=== PATIENT | female | born 1940 | race Two or more races ===

== ENCOUNTER → 2017-05-14 | Outpatient (CLI) | payer MEDICARE, OTHER | LOC: M WHC 08:43 | DX: Z12.31 Encounter for screening mammogram for malignant neoplasm of breast (principal) | CPT/HCPCS: 77067 ==

== ENCOUNTER → 2017-07-01 | Outpatient (CLI) | payer MEDICARE, OTHER | LOC: M ADAMS 10:11 | DX: M70.62 Trochanteric bursitis, left hip (principal); M81.0 Age-related osteoporosis without current pathological fracture; M16.12 Unilateral primary osteoarthritis, left hip | CPT/HCPCS: 73502 ==

== ENCOUNTER → 2017-07-30 | Outpatient (CLI) | payer MEDICARE, OTHER | LOC: M RAD 07:30 | DX: G20 Parkinson's disease (principal) | CPT/HCPCS: 70450 ==

== ENCOUNTER → 2017-11-04 | Outpatient (REF) | payer MEDICARE, OTHER | LOC: M LAB REF 15:31 | DX: L08.9 Local infection of the skin and subcutaneous tissue, unspecified (principal) | CPT/HCPCS: 87186 ==

== ENCOUNTER → 2018-02-19 | Outpatient (CLI) | payer MEDICARE, OTHER ==
[2018-02-19 12:35] LABS: ANION GAP 8 MEQ/L (8-16); BLOOD UREA NITROGEN 19 MG/DL (7-18); CALCIUM LEVEL 8.8 MG/DL (8.8-10.2); CARBON DIOXIDE LEVEL 28 MEQ/L (21-32); CHLORIDE LEVEL 104 MEQ/L (98-107); CREATININE FOR GFR 0.77 MG/DL (0.55-1.30); GLOMERULAR FILTRATION RATE > 60.0 (>39); GLUCOSE, FASTING 89 MG/DL (70-100); POTASSIUM SERUM 3.7 MEQ/L (3.5-5.1); SODIUM LEVEL 140 MEQ/L (136-145)
== END ==
LOC: M LAB 11:18
DX: Z01.812 Encounter for preprocedural laboratory examination (principal); L72.9 Follicular cyst of the skin and subcutaneous tissue, unspecified
CPT/HCPCS: 80048

== ENCOUNTER → 2018-05-26 | Outpatient (REF) | payer MEDICARE, OTHER ==
[2018-05-27 15:26] LABS: ANTI DOUBLE STRAND-DNA AB 10 IU/mL (0-9); ANTINUCLEAR ANTIBODIES DIRECT Positive (Negative); RNP ANTIBODIES 0.6 AI (0.0-0.9); SJOGREN'S ANTI SS-A <0.2 AI (0.0-0.9); SJOGREN'S ANTI SS-B <0.2 AI (0.0-0.9); SMITH ANTIBODIES <0.2 AI (0.0-0.9)
== END ==
LOC: M LABNEURO 09:03
PROVIDERS: ATTEND Physician Assistant Medical
DX: M25.552 Pain in left hip (principal); L40.9 Psoriasis, unspecified

== ENCOUNTER → 2018-07-01 | Outpatient (CLI) | payer MEDICARE, OTHER ==
--- NOTE | 2018-07-01 10:35 | REPMRS ---
Patient History The patient states she had a clinical breast exam in 06/24 Patient is postmenopausal. No known family history of cancer. Took hormonal contraceptives for 10 years. Digital Woman Screen Mammo: July 01, 2018 - Exam #: [id number] Bilateral CC and MLO view(s) were taken. Technologist: Esha Mckee, Technologist Prior study comparison: May 14, 2017, digital woman screen mammo performed at [facility]. April 12, 2016, digital woman screen mammo performed at [facility]. FINDINGS: There are scattered fibroglandular densities. There is a pacemaker power plant projecting over the left axilla on the MLO view. There has been no change in the appearance of the mammogram from the prior studies. There is a mild amount of scattered fibroglandular density which is fairly symmetric. There is no interval development of dominant mass, architectural distortion, or clustered microcalcification suggestive of malignancy. 3-D tomosynthesis shows no additional findings. Assessment: BI-RADS/ACR category 2 mammogram. Benign Findings. Recommendation Routine screening mammogram of both breasts in 1 year (for women over age 40). This patient's Lifetime Breast Cancer RIsk is estimated at 2.5 %. This mammogram was interpreted with the aid of an FDA-approved computer-aided dectection system. Electronically Signed By: Karthikeyan Damico MD 07/01/18 [id number]
== END ==
LOC: M WHC 08:04
PROVIDERS: ATTEND Nurse Practitioner Women's Health
DX: Z01.419 Encounter for gynecological examination (general) (routine) without abnormal findings (principal); Z12.31 Encounter for screening mammogram for malignant neoplasm of breast; Z78.0 Asymptomatic menopausal state; Z92.0 Personal history of contraception; Z95.0 Presence of cardiac pacemaker
CPT/HCPCS: 77063; 77067; G0101

== ENCOUNTER 2019-05-27 17:34 | Emergency (ER) | payer MEDICARE, OTHER ==
[~2019-05-27] VITALS: Ht 149.9 cm; Wt 71.0 kg
[2019-05-27] MEDS ORDERED: MAGN400C2 PO (18:04)
[2019-05-27] MEDS ORDERED: ASPI81TA85 PO (18:04)
[2019-05-27] MEDS ORDERED: HYDR50TAB PO (18:04)
[2019-05-27] MEDS ORDERED: VITA200028 PO (18:04)
[2019-05-27] MEDS ORDERED: SIMV40TA20 PO (18:04)
[2019-05-27] MEDS ORDERED: AMIL5TAB4 PO (18:04)
[2019-05-27] MEDS ORDERED: PRAM0.754 PO ×2 (18:04)
[2019-05-27 19:00] LABS: CK-MB VALUE MASS 3.7 NG/ML (<3.6); CPK CREATINE PHOSPHOKINASE 162 U/L (26-192); MB/CK RELATIVE INDEX 2.28 (< OR =4); TROPONIN I < 0.02 NG/ML (< 0.10)
[2019-05-27 19:36] LABS: BASO % 0.7 % (0.0-1.0); EOS # 0.3 10^3/uL (0.0-0.5); EOS % 6.2 % (0.0-3.0); HEMATOCRIT 41.1 % (36.0-47.0); HEMOGLOBIN 12.8 g/dl (12.0-15.5); MEAN CORPUSCULAR HEMOGLOBIN 29.7 pg (27.0-33.0); MEAN CORPUSCULAR HGB CONC 31.1 g/dl (32.0-36.5); MEAN CORPUSCULAR VOLUME 95.4 fl (80.0-96.0); MONO # 0.5 10^3/uL (0.0-0.8); MONO % 11.4 % (0.0-5.0); NEUTROPHILS # 2.5 10^3/uL (1.5-8.5); NEUTROPHILS % 58.2 % (36.0-66.0); PLATELET COUNT, AUTOMATED 214 10^3/uL (150-450); RED BLOOD COUNT 4.31 10^6/uL (4.00-5.40); WHITE BLOOD COUNT 4.2 10^3/uL (4.0-10.0)
[2019-05-27] MEDS ORDERED: ISOVUE-370 76% 100ML VIAL (Q9967) As Ordered ONE (19:46)
--- NOTE | 2019-05-27 20:13 | ECGEPIP ---
[facility] - ED Test Date: 2019-05-27 Pat Name: FLOR MOLINA Department: Room: - Gender: Female Hand Sole [employer]er: : 1940 Requested By: Katt Bedolla Order Number: [id number] Reading MD: Wagner Guerra Measurements Intervals [place] Rate: 70 P: 55 ME: 206 QRS: -75 QRSD: 152 T: 87 QT: 439 QTc: 475 Interpretive Statements ELECTRONIC VENTRICULAR PACEMAKER SIMILAR TO 12/27/15 Electronically Signed on 05-27-2019 20:12:36 EST by Wagner Guerra
--- NOTE | 2019-05-27 20:18 | REPVR ---
PROCEDURE INFORMATION: Exam: CT Angiography Chest With Contrast Exam date and time: 05/27/2019 7:49 PM Age: 78 years old Clinical indication: Chest pain; Additional info: Chest pain, SOB TECHNIQUE: Imaging protocol: Computed tomographic angiography of the chest with intravenous contrast. 3D rendering: MIP and/or 3D reconstructed images were created by the technologist. Radiation optimization: All CT scans at this facility use at least one of these dose optimization techniques: automated exposure control; mA and/or kV adjustment per patient size (includes targeted exams where dose is matched to clinical indication); or iterative reconstruction. Contrast material: ISOVUE 370; Contrast volume: 75 ml; Contrast route: IV; COMPARISON: CR Chest, 1 view 12/27/2015 2:54 PM FINDINGS: Pulmonary arteries: There are no pulmonary emboli. Aorta: The aorta demonstrates mild atherosclerotic calcification. Ectatic thoracic aorta.There is mild atherosclerotic calcification of the coronary arteries. There is no aortic dissection or aneurysm. Lungs: Bibasilar atelectasis. Mild bilateral ground-glass opacities likely are atelectatic. Pleural space: Unremarkable. No pneumothorax. No pleural effusion. Heart: Unremarkable. No cardiomegaly. No pericardial effusion. Lymph nodes: Small mediastinal lymph nodes. Bones/joints: Degenerative spondylosis. No acute fracture. Soft tissues: Left-sided Bochdalek's hernia. IMPRESSION: 1. There are no pulmonary emboli. 2. There is no aortic dissection or aneurysm. 3. No acute pulmonary parenchymal abnormalities. Electronically signed by: Dandy Hills On 05/27/2019 20:18:30 PM
--- NOTE | 2019-05-27 20:20 | REPVR ---
PROCEDURE INFORMATION: Exam: US Duplex Lower Extremity Veins Exam date and time: 05/27/2019 8:11 PM Age: 78 years old Clinical indication: Abnormal findings; Abnormal lab test; Elevated d-dimer; Additional info: Elev d dimer chest pain, R/O dvt TECHNIQUE: Imaging protocol: Real-time duplex ultrasound of the Lower Extremities with 2-D purvis scale, color Doppler flow and spectral waveform analysis with image documentation. Complete exam focused on the bilateral lower extremity veins. COMPARISON: No relevant prior studies available. FINDINGS: Right deep veins: Unremarkable. The common femoral, femoral, proximal profunda femoral and popliteal veins are patent without thrombus. Normal Doppler waveforms. Normal compressibility and/or augmentation response. Right superficial veins: Saphenofemoral junction is patent without thrombus. Left deep veins: Unremarkable. The common femoral, femoral, proximal profunda femoral and popliteal veins are patent without thrombus. Normal Doppler waveforms. Normal compressibility and/or augmentation response. Left superficial veins: Saphenofemoral junction is patent without thrombus. Soft tissues: Unremarkable. IMPRESSION: No acute findings. No evidence of deep vein thrombosis. Electronically signed by: Dandy Hills On 05/27/2019 20:19:51 PM
[2019-05-27] MEDS ORDERED: VENTAER INH (20:50)
[2019-05-27] MEDS ORDERED: TREL1AER INH (20:50)
[2019-05-27] MEDS ORDERED: FLUT05CR TOP (20:50)
[2019-05-27] MEDS ORDERED: KETO2SHA9 TOP (20:50)
[2019-05-27] MEDS ORDERED: HALO0.052 TOP (20:50)
[2019-05-27 21:31] VITALS: BP 139/62
== END 2019-05-27 21:59 | disposition home or self-care (01) ==
LOC: M ED 17:34
DX: R79.1 Abnormal coagulation profile (principal); J45.909 Unspecified asthma, uncomplicated; I10 Essential (primary) hypertension; E55.9 Vitamin D deficiency, unspecified; G20 Parkinson's disease; E78.9 Disorder of lipoprotein metabolism, unspecified; M19.90 Unspecified osteoarthritis, unspecified site; Z95.0 Presence of cardiac pacemaker; Z88.2 Allergy status to sulfonamides; Z88.8 Allergy status to other drugs, medicaments and biological substances; Z79.899 Other long term (current) drug therapy; Z79.82 Long term (current) use of aspirin
CPT/HCPCS: 36415; 71275; 80047; 82550; 82553; 84484; 85025; 93005; 93041; 93970; 94760; 99285; Q9967

== ENCOUNTER → 2019-06-17 | Outpatient (CLI) | payer MEDICARE, OTHER ==
[~2019-06-17] MED LIST: AMIL5TAB4 PO; ASPI81TA85 PO; FLUT05CR TOP; HALO0.052 TOP; HYDR50TAB PO; ISOVUE-370 76% 100ML VIAL (Q9967) As Ordered ONE; KETO2SHA9 TOP; MAGN400C2 PO; PRAM0.754 PO; SIMV40TA20 PO; TREL1AER INH; VENTAER INH; VITA200028 PO
--- NOTE | 2019-06-17 16:42 | REPVR ---
PROCEDURE INFORMATION: Exam: CT Angiography Neck With Contrast Exam date and time: 06/17/2019 3:58 PM Age: 78 years old Clinical indication: Condition or disease; Occlusion or stenosis of cerebral arteries; Additional info: Occlusion and stenosis of left carotid artery TECHNIQUE: Imaging protocol: Computed tomography angiography of the neck with intravenous contrast. 3D rendering: MIP and/or 3D reconstructed images were created by the technologist. Radiation optimization: All CT scans at this facility use at least one of these dose optimization techniques: automated exposure control; mA and/or kV adjustment per patient size (includes targeted exams where dose is matched to clinical indication); or iterative reconstruction. Contrast material: ISOVUE 370; Contrast volume: 75 ml; Contrast route: IV; COMPARISON: No relevant prior studies available. FINDINGS: VASCULATURE: Right common carotid artery: Unremarkable. No stenosis. No dissection or occlusion. Right internal carotid artery: There is minimal calcified atheromatous plaque in the right carotid bulb without significant stenosis of the proximal right ICA. Right external carotid artery: Unremarkable. No occlusion or stenosis of the origin. Right vertebral artery: Unremarkable. No stenosis. No dissection or occlusion. Left common carotid artery: Unremarkable. No stenosis. No dissection or occlusion. Left internal carotid artery: There is calcified atheromatous plaque in the left carotid bulb extending into the proximal left ICA without significant stenosis. There may be an ulcerated plaque in the left ICA at the level of the angle of the mandible series 403, image 52, series 401, image 8. Left external carotid artery: Calcified atheromatous plaque extends into the proximal left ECA without significant stenosis. Left vertebral artery: Unremarkable. No stenosis. No dissection or occlusion. NECK: Bones/joints: No acute fracture. Soft tissues: Normal. No significant soft tissue swelling. IMPRESSION: There is no significant stenosis of the carotid arteries. There may be an ulcerated plaque in the proximal left ICA just above the carotid bulb. COMMENT: Using NASCET method for measuring degree of carotid artery stenosis: Mild is less than 50% stenosis. Moderate is 50-69% stenosis. Severe is 70-94% stenosis. Near occlusion is 95-99% stenosis. Electronically signed by: Suni Campoverde On 06/17/2019 16:42:40 PM
== END ==
LOC: M RAD 15:28
PROVIDERS: ATTEND Surgery Vascular Surgery
DX: I65.22 Occlusion and stenosis of left carotid artery (principal)
CPT/HCPCS: 70498; Q9967

== ENCOUNTER → 2019-07-17 | Outpatient (CLI) | payer MEDICARE, OTHER ==
[~2019-07-17] MED LIST changes: -ISOVUE-370 76% 100ML VIAL (Q9967) As Ordered ONE
--- NOTE | 2019-07-17 14:11 | REP ---
Left knee series: Six views. History: Pain in the knee. Findings: Six views of the left knee demonstrate mild patellofemoral spurring and joint space narrowing. There is diffuse osteopenia. Clothing artifact is seen over the distal thigh. No evidence of joint effusion. Impression: Diffuse osteopenia. 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 No acute abnormality. Electronically Signed by Jake Damico MD 07/17/2019 02:02 P
== END ==
LOC: M ADAMS 13:28
PROVIDERS: ATTEND Physician Assistant
DX: M85.862 Other specified disorders of bone density and structure, left lower leg (principal); M17.12 Unilateral primary osteoarthritis, left knee

== ENCOUNTER → 2019-09-24 | Outpatient (CLI) | payer MEDICARE, OTHER ==
--- NOTE | 2019-09-24 11:11 | REPMRS ---
Patient History The patient states she had a clinical breast exam in September 2019. No known family history of cancer. Took hormonal contraceptives for 10 years. Digital Woman Screen Mammo: September 24, 2019 - Exam #: [id number] Bilateral CC and MLO view(s) were taken. Technologist: Mary Anne Mane, Technologist Prior study comparison: July 01, 2018, bilateral digital woman screen mammo performed at [facility]. May 14, 2017, digital woman screen mammo performed at [facility]. April 12, 2016, digital woman screen mammo performed at [facility]. FINDINGS: There are scattered fibroglandular densities. The Volpara volumetric breast density category is:B. There is a pacemaker power plant projecting over the left axilla on the MLO view. There has been no change in the appearance of the mammogram from the prior studies. There is a mild amount of scattered fibroglandular density which is fairly symmetric. There is no interval development of dominant mass, architectural distortion, or grouped microcalcification suggestive of malignancy. 3-D tomosynthesis shows no additional findings. Assessment: BI-RADS/ACR category 2 mammogram. Benign Findings. Recommendation Routine screening mammogram of both breasts in 1 year (for women over age 40). This patient's Lifetime Breast Cancer Risk is estimated at 1.9 %. This mammogram was interpreted with the aid of an FDA-approved computer-aided dectection system. Electronically Signed By: Karthikeyan Damico MD 09/24/19 1111
== END ==
LOC: M WHC 09:47
PROVIDERS: ATTEND Nurse Practitioner Women's Health
DX: Z12.31 Encounter for screening mammogram for malignant neoplasm of breast (principal); Z92.0 Personal history of contraception; Z95.0 Presence of cardiac pacemaker
CPT/HCPCS: 77063; 77067; G0463

== ENCOUNTER → 2020-05-08 | Outpatient (CLI) | payer MEDICARE, OTHER ==
[~2020-05-08] MED LIST changes: -ASPI81TA85 PO; +ASPI81TA86 PO; +KETO2SHA8 TOP; -KETO2SHA9 TOP
== END ==
LOC: M LABSMTC 11:14
PROVIDERS: ATTEND Pediatrics
DX: Z20.828 Contact with and (suspected) exposure to other viral communicable diseases (principal)

== ENCOUNTER → 2020-07-28 | Outpatient (CLI) | payer MEDICARE, OTHER | LOC: M LABSMTC 09:49 | DX: Z20.822 Contact with and (suspected) exposure to COVID-19 (principal) ==

== ENCOUNTER → 2021-01-19 | Outpatient (CLI) | payer MEDICARE, OTHER ==
--- NOTE | 2021-01-19 09:24 | REPMRS ---
Patient History The patient states she has not had a clinical breast exam in over a year. Patient is postmenopausal. No known family history of cancer. Took hormonal contraceptives for 10 years. Patient states no breast complaints today. Patient has signed MRS History Sheet. Digital Woman Screen Mammo: January 19, 2021 - Exam #: [id number] Bilateral CC and MLO view(s) were taken. Technologist: Maureen Thorpe Materials Scheduler Prior study comparison: September 24, 2019, bilateral digital woman screen mammo performed at [facility]. July 01, 2018, bilateral digital woman screen mammo performed at [facility]. FINDINGS: There are scattered fibroglandular densities. Screening. Digital screening (2D) mammography was performed bilaterally in the CC and MLO projections. Additionally, breast tomosynthesis (3D mammography) was performed bilaterally in the CC and MLO projections. Todays exam was compared to the prior exam/exams. By history, the patient has no complaints of a palpable breast abnormality or other significant breast complaints. The breasts are unchanged in size and shape. There are no armando-soft tissue densities or spiculated masses. There is no internal architectural distortion.Once again, stable benign appearing calcifications are seen. There are no suspicious armando-calcific clusters. Skin thickening or nipple retraction is not present. IMPRESSION: BI-RADS Category 2- Benign Findings. There is no evidence of malignant alteration of the breasts. Followup examination recommended in one year. The Volpara volumetric breast density category is B, there are scattered areas of fibroglandular densities. This mammogram was read with the assistance of [employer],an FDA approved computer aided detection system for mammography. The lifetime Tyrer-Cuzick score is 1.6 % Negative x-ray reports should not delay surgical consultation if a dominant or clinically suspicious mass is present. Not all breast cancers can be identified by mammography. Therefore, we recommend that you continue to perform regular breast self-examination and physical examination and then promptly contact your physician of any concerns or changes. Adenosis and dense breasts may obscure an underlying neoplasm. Assessment: BI-RADS/ACR category 2 mammogram. Benign Findings. Recommendation Routine screening mammogram of both breasts in 1 year. Electronically Signed By: Obdulio Malave DO 01/19/21 0938
--- NOTE | 2021-01-19 11:01 | DEXAMM ---
INDICATION: OSTEOPENIA/M85.89. COMPARISON: 03/23/2015 and other prior studies. TECHNIQUE: Bone density was measured using dual-energy x-ray absorptiometry (DEXA). FINDINGS: AP SPINE L1-L4 BMD 1.362 g/cm2 Young Adult T-Score 1.4 Age Matched Z-Score 3.2. LT FEMUR, TOTAL BMD 0.792 g/cm2 Young Adult T-Score -1.7 Age Matched Z-Score 0.3. LT NECK BMD 0.712 g/cm2 Young Adult T-Score -2.3 Age Matched Z-Score -0.2. RT FEMUR, TOTAL BMD 0.835 g/cm2 Young Adult T-Score -1.4 Age Matched Z-Score 0.6. RT NECK BMD 0.710 g/cm2 Young Adult T-Score -2.4 Age Matched Z-Score -0.2. IMPRESSION: There is normal bone density of the spine. There is low bone density of the left hip. There is low bone density of the right hip. The density of the spine has increased 11.1% since the initial exam on 05/14/2001. The density of the spine decreased 3.5% since most recent exam on 03/23/2015. The density of the left hip has decreased 9.0% since initial exam on 03/23/2015. The density of the right hip has decreased 9.0% since the initial exam on 03/23/2015. FOLLOW-UP: Recommendation for the next bone density exam: 2 years. <Electronically signed by Denton Jacobs > 01/19/21 0168
== END ==
LOC: M WHC 08:07
PROVIDERS: ATTEND Family Medicine
DX: Z12.31 Encounter for screening mammogram for malignant neoplasm of breast (principal); M85.89 Other specified disorders of bone density and structure, multiple sites; Z78.0 Asymptomatic menopausal state

== ENCOUNTER → 2021-04-18 | Outpatient (CLI) | payer MEDICARE, OTHER | LOC: M PLAIMG 07:54 | PROVIDERS: ATTEND Physician Assistant Medical | DX: M54.59 Other low back pain (principal); M51.36 Other intervertebral disc degeneration, lumbar region; R53.1 Weakness; M41.86 Other forms of scoliosis, lumbar region; M48.07 Spinal stenosis, lumbosacral region; M48.061 Spinal stenosis, lumbar region without neurogenic claudication; M25.78 Osteophyte, vertebrae; M47.816 Spondylosis without myelopathy or radiculopathy, lumbar region ==

== ENCOUNTER → 2021-09-27 | Outpatient (REF) | payer MEDICARE, OTHER | LOC: M LAB REF 13:01 | PROVIDERS: ATTEND Nurse Practitioner Adult Health | DX: R05.9 Cough, unspecified (principal) ==

== ENCOUNTER → 2021-10-23 | Outpatient (CLI) | payer MEDICARE, OTHER ==
[2021-10-23 11:58] LABS: BASO % 0.9 % (0.0-1.0); EOS # 0.1 10^3/uL (0.0-0.5); HEMOGLOBIN 11.7 g/dl (12.0-15.5); LYMPH # 0.8 10^3/uL (1.5-5.0); LYMPH % 23.2 % (24.0-44.0); MEAN CORPUSCULAR HEMOGLOBIN 29.2 pg (27.0-33.0); MEAN CORPUSCULAR HGB CONC 30.8 g/dl (32.0-36.5); MEAN CORPUSCULAR VOLUME 94.8 fl (80.0-96.0); MONO # 0.4 10^3/uL (0.0-0.8); NEUTROPHILS % 59.7 % (36.0-66.0); PLATELET COUNT, AUTOMATED 132 10^3/uL (150-450); RED BLOOD COUNT 4.01 10^6/uL (4.00-5.40); WHITE BLOOD COUNT 3.3 10^3/uL (4.0-10.0)
== END ==
LOC: M RAD 10:54
PROVIDERS: ATTEND Family Medicine
DX: R93.7 Abnormal findings on diagnostic imaging of other parts of musculoskeletal system (principal); R79.89 Other specified abnormal findings of blood chemistry; M54.50 Low back pain, unspecified

== ENCOUNTER → 2021-11-16 | Outpatient (CLI) | payer MEDICARE, OTHER ==
[2021-11-16 20:11] LABS: BLOOD UREA NITROGEN 21 MG/DL (7-18); CALCIUM LEVEL 8.8 MG/DL (8.8-10.2); CARBON DIOXIDE LEVEL 27 MEQ/L (21-32); CHLORIDE LEVEL 110 MEQ/L (98-107); CREATININE FOR GFR 0.75 MG/DL (0.55-1.30); GLOMERULAR FILTRATION RATE > 60.0 (>32); GLUCOSE, FASTING 100 MG/DL (70-100); POTASSIUM SERUM 4.4 MEQ/L (3.5-5.1); SODIUM LEVEL 143 MEQ/L (136-145)
== END ==
LOC: M PLALAB 09:43
PROVIDERS: ATTEND Nurse Practitioner Women's Health
DX: Q61.00 Congenital renal cyst, unspecified (principal)

== ENCOUNTER → 2021-11-27 | Outpatient (CLI) | payer MEDICARE, OTHER ==
[~2021-11-27] MED LIST changes: +ISOVUE-370 76% 100ML VIAL As Ordered ONE
== END ==
LOC: M RAD 10:17
PROVIDERS: ATTEND Nurse Practitioner Women's Health
DX: Q61.00 Congenital renal cyst, unspecified (principal); K44.9 Diaphragmatic hernia without obstruction or gangrene
CPT/HCPCS: 74170; Q9967

== ENCOUNTER → 2021-12-28 | Outpatient (CLI) | payer MEDICARE, OTHER ==
[~2021-12-28] MED LIST changes: -ISOVUE-370 76% 100ML VIAL As Ordered ONE
== END ==
LOC: M RAD 09:55
PROVIDERS: ATTEND Orthopaedic Surgery
DX: R93.7 Abnormal findings on diagnostic imaging of other parts of musculoskeletal system (principal)
CPT/HCPCS: 78315; A9503

== ENCOUNTER → 2022-01-23 | Outpatient (REF) | payer MEDICARE, OTHER | LOC: M LAB REF 13:18 | PROVIDERS: ATTEND Nurse Practitioner Adult Health | DX: R05.9 Cough, unspecified (principal) ==

== ENCOUNTER → 2022-02-24 | Outpatient (CLI) | payer MEDICARE, OTHER ==
[2022-02-24 08:59] LABS: BASO % 0.7 % (0.0-1.0); EOS # 0.1 10^3/uL (0.0-0.5); EOS % 1.9 % (0.0-3.0); HEMATOCRIT 35.7 % (36.0-47.0); HEMOGLOBIN 11.1 g/dl (12.0-15.5); MEAN CORPUSCULAR HGB CONC 31.1 g/dl (32.0-36.5); MEAN CORPUSCULAR VOLUME 96.5 fl (80.0-96.0); MONO # 0.5 10^3/uL (0.0-0.8); MONO % 11.1 % (2.0-8.0); NEUTROPHILS # 2.6 10^3/uL (1.5-8.5); NEUTROPHILS % 61.9 % (36.0-66.0); PLATELET COUNT, AUTOMATED 213 10^3/uL (150-450); WHITE BLOOD COUNT 4.2 10^3/uL (4.0-10.0)
[2022-02-24 09:01] LABS: APPEARANCE, URINE MANUAL CLEAR (CLEAR); COLOR, URINE MANUAL YELLOW (YELLOW)
[2022-02-24 09:02] LABS: PH,URINE MAN 7.5 UNITS (5.0 - 7.0)
[2022-02-24 09:03] LABS: BILIRUBIN, URINE MANUAL NEGATIVE (NEGATIVE); BLOOD URINE MANUAL NEGATIVE (NEGATIVE); GLUCOSE, URINE (UA) MANUAL NEGATIVE (NEGATIVE); KETONE, URINE MANUAL NEGATIVE (NEGATIVE); LEUKOCYTE ESTERASE, URINE MAN NEGATIVE (NEGATIVE); NITRITE, URINE MANUAL NEGATIVE (NEGATIVE); PROTEIN, URINE MANUAL TRACE mg/dL (NEGATIVE); UROBILINOGEN, URINE MANUAL NORMAL (NORMAL)
[2022-02-24 09:28] LABS: AMORPHOUS SEDIMENT, URINE MOD AMOUNT (NEGATIVE); BACTERIA, URINE NONE SEEN; HYALINE CAST, URINE NONE SEEN /lpf (0-1); RBC, URINE NONE SEEN /hpf (0-3); SQUAMOUS EPITHELIAL CELL URINE SMALL AMOUNT /hpf (SMALL AMT)
[2022-02-24 09:44] LABS: ALBUMIN 3.4 GM/DL (3.2-5.2); ALT/SGPT 37 U/L (12-78); BILIRUBIN,TOTAL 0.9 MG/DL (0.2-1.0); BLOOD UREA NITROGEN 22 MG/DL (7-18); CALCIUM LEVEL 8.4 MG/DL (8.8-10.2); CARBON DIOXIDE LEVEL 28 MEQ/L (21-32); CHLORIDE LEVEL 107 MEQ/L (98-107); CREATININE FOR GFR 0.88 MG/DL (0.55-1.30); FREE T4 1.08 NG/DL (0.76-1.46); GLOMERULAR FILTRATION RATE > 60.0 (>32); GLUCOSE, FASTING 116 MG/DL (70-100); POTASSIUM SERUM 4.4 MEQ/L (3.5-5.1); SODIUM LEVEL 139 MEQ/L (136-145); THYROID STIMULATING HORMONE 0.888 uIU/ML (0.358-3.740); TOTAL PROTEIN 6.5 GM/DL (6.4-8.2)
== END ==
LOC: M LAB 08:10
PROVIDERS: ATTEND Family Medicine
DX: E03.9 Hypothyroidism, unspecified (principal); I11.0 Hypertensive heart disease with heart failure; G20 Parkinson's disease; I50.9 Heart failure, unspecified; Z79.899 Other long term (current) drug therapy

== ENCOUNTER → 2022-04-06 | Outpatient (CLI) | payer MEDICARE, OTHER | LOC: M WHC 06:56 | PROVIDERS: ATTEND Family Medicine | DX: Z12.31 Encounter for screening mammogram for malignant neoplasm of breast (principal) ==

== ENCOUNTER → 2022-04-06 | Outpatient (CLI) | payer MEDICARE, OTHER ==
[2022-04-06 08:40] LABS: EOS # 0.1 10^3/uL (0.0-0.5); EOS % 4.7 % (0.0-3.0); HEMATOCRIT 37.6 % (36.0-47.0); HEMOGLOBIN 11.3 g/dl (12.0-15.5); LYMPH # 0.7 10^3/uL (1.5-5.0); LYMPH % 22.6 % (24.0-44.0); MEAN CORPUSCULAR HEMOGLOBIN 29.2 pg (27.0-33.0); MEAN CORPUSCULAR HGB CONC 30.1 g/dl (32.0-36.5); MEAN CORPUSCULAR VOLUME 97.2 fl (80.0-96.0); MONO # 0.4 10^3/uL (0.0-0.8); NEUTROPHILS # 1.8 10^3/uL (1.5-8.5); PLATELET COUNT, AUTOMATED 118 10^3/uL (150-450); RED BLOOD COUNT 3.87 10^6/uL (4.00-5.40)
[2022-04-06 09:24] LABS: ALBUMIN 3.7 G/DL (3.2-5.2); ALKALINE PHOSPHATASE 104 U/L (46-116); ALT/SGPT 17 U/L (7.0-40); AST/SGOT 21 U/L (<34); BILIRUBIN,TOTAL 1.2 MG/DL (0.3-1.2); BLOOD UREA NITROGEN 24 MG/DL (9-23); CALCIUM LEVEL 8.6 MG/DL (8.3-10.6); CARBON DIOXIDE LEVEL 30 MMOL/L (20-31); CHLORIDE LEVEL 106 MMOL/L (98-107); CREATININE FOR GFR 0.79 MG/DL (0.55-1.30); GLOMERULAR FILTRATION RATE > 60.0 (>32); GLUCOSE, FASTING 93 MG/DL (74-106); POTASSIUM SERUM 4.1 MMOL/L (3.5-5.1); SODIUM LEVEL 142 MMOL/L (136-145); TOTAL PROTEIN 6.1 G/DL (5.7-8.2)
== END ==
LOC: M LAB 08:05
PROVIDERS: ATTEND Family Medicine
DX: G20 Parkinson's disease (principal); R42 Dizziness and giddiness; E83.51 Hypocalcemia

== ENCOUNTER → 2022-07-12 | Outpatient (REF) | payer MEDICARE, OTHER ==
[~2022-07-12] MED LIST changes: +ATOR1TAB21; +CALC-218 PO; +FURO20TA2; +IPRA0.00; +LORA-674; +POTA1TAB23; +VALS1TAB66
== END ==
LOC: M LAB REF 13:03
PROVIDERS: ATTEND Nurse Practitioner Adult Health
DX: R05.9 Cough, unspecified (principal)

== ENCOUNTER 2022-07-13 18:42 | Emergency (ER) | payer MEDICARE, OTHER ==
[~2022-07-13] VITALS: Ht 149.9 cm; Wt 65.3 kg
[~2022-07-13 18:42] MED LIST changes: -ATOR1TAB21; -CALC-218 PO; -FURO20TA2; -IPRA0.00; -LORA-674; -POTA1TAB23; -VALS1TAB66
[2022-07-13] MEDS ORDERED: LORA-674 (18:55)
[2022-07-13] MEDS ORDERED: POTA1TAB23 (18:55)
[2022-07-13] MEDS ORDERED: VALS1TAB66 (18:55)
[2022-07-13] MEDS ORDERED: ATOR1TAB21 (18:55)
[2022-07-13] MEDS ORDERED: IPRA0.00 (18:55)
[2022-07-13] MEDS ORDERED: FURO20TA2 (18:55)
[2022-07-13] MEDS ORDERED: CALC-218 PO (18:55)
[2022-07-13] MEDS ORDERED: NS 1,000 ML IV ONE (19:55)
[2022-07-13 20:04] LABS: BASO % 0.6 % (0.0-1.0); EOS # 0.2 10^3/uL (0.0-0.5); EOS % 4.3 % (0.0-3.0); HEMATOCRIT 36.4 % (36.0-47.0); HEMOGLOBIN 11.5 g/dl (12.0-15.5); LYMPH % 27.4 % (24.0-44.0); MEAN CORPUSCULAR HGB CONC 31.6 g/dl (32.0-36.5); MEAN CORPUSCULAR VOLUME 91.7 fl (80.0-96.0); MONO # 0.5 10^3/uL (0.0-0.8); MONO % 13.8 % (2.0-8.0); NEUTROPHILS # 1.8 10^3/uL (1.5-8.5); NEUTROPHILS % 51.9 % (36.0-66.0); PLATELET COUNT, AUTOMATED 126 10^3/uL (150-450); RED BLOOD COUNT 3.97 10^6/uL (4.00-5.40); WHITE BLOOD COUNT 3.5 10^3/uL (4.0-10.0)
[2022-07-13 20:14] LABS: INR 1.04; PROTHROMBIN TIME 13.8 SECONDS (12.5-14.5)
[2022-07-13 20:15] LABS: PARTIAL THROMBOPLASTIN TIME 28.6 SECONDS (24.8-34.2)
[2022-07-13 20:34] LABS: LIPASE 42 U/L (12-53)
[2022-07-13 20:36] LABS: ALBUMIN 3.4 G/DL (3.2-5.2); ALKALINE PHOSPHATASE 93 U/L (46-116); ALT/SGPT 20 U/L (7.0-40); AST/SGOT 17 U/L (<34); BILIRUBIN,DIRECT 0.4 MG/DL (<0.4); BILIRUBIN,TOTAL 1.4 MG/DL (0.3-1.2); BLOOD UREA NITROGEN 28 MG/DL (9-23); CALCIUM LEVEL 8.3 MG/DL (8.3-10.6); CARBON DIOXIDE LEVEL 29 MMOL/L (20-31); CHLORIDE LEVEL 107 MMOL/L (98-107); CREATININE FOR GFR 0.76 MG/DL (0.55-1.30); GLOMERULAR FILTRATION RATE > 60.0 (>32); GLUCOSE, FASTING 82 MG/DL (74-106); POTASSIUM SERUM 3.8 MMOL/L (3.5-5.1); SODIUM LEVEL 142 MMOL/L (136-145); TOTAL PROTEIN 5.7 G/DL (5.7-8.2)
[2022-07-13] MEDS ORDERED: ISOVUE-370 76% 100ML VIAL As Ordered ONE (21:03)
[2022-07-13 22:30] VITALS: BP 140/58
== END 2022-07-13 23:02 | disposition home or self-care (01) ==
LOC: M ED 18:42
DX: R10.9 Unspecified abdominal pain (principal); I11.9 Hypertensive heart disease without heart failure; G20 Parkinson's disease; Z79.82 Long term (current) use of aspirin; Z79.899 Other long term (current) drug therapy; Z79.51 Long term (current) use of inhaled steroids
CPT/HCPCS: 36415; 74177; 80048; 80076; 81001; 83605; 83690; 85025; 85610; 85730; 93041; 99284; Q9967

== ENCOUNTER 2022-08-17 17:09 | Emergency (ER) | payer MEDICARE, OTHER ==
[~2022-08-17] VITALS: Ht 149.9 cm; Wt 63.6 kg
[~2022-08-17 17:09] MED LIST changes: +ATOR1TAB21; +CALC-218 PO; +FURO20TA2; +IPRA0.00; +LORA-674; +POTA1TAB23; +VALS1TAB66
[2022-08-17] MEDS ORDERED: ACETAMINOPHEN 325 MG TAB PO ONE (20:10)
[2022-08-17 22:43] VITALS: BP 144/65
== END 2022-08-17 22:47 | disposition home or self-care (01) ==
LOC: M ED 17:09
DX: S32.020A Wedge compression fracture of second lumbar vertebra, initial encounter for closed fracture (principal); S70.01XA Contusion of right hip, initial encounter; W01.0XXA Fall on same level from slipping, tripping and stumbling without subsequent striking against object, initial encounter; Y92.019 Unspecified place in single-family (private) house as the place of occurrence of the external cause; Y93.E3 Activity, vacuuming; Y99.8 Other external cause status; G20 Parkinson's disease; I10 Essential (primary) hypertension; Z95.0 Presence of cardiac pacemaker; E78.00 Pure hypercholesterolemia, unspecified

== ENCOUNTER → 2022-11-13 | Outpatient (REF) | payer MEDICARE, OTHER | LOC: M LAB REF 17:06 | PROVIDERS: ATTEND Internal Medicine Pulmonary Disease | DX: J45.40 Moderate persistent asthma, uncomplicated (principal); J47.9 Bronchiectasis, uncomplicated ==

== ENCOUNTER → 2022-11-22 | Outpatient (REF) | payer MEDICARE, OTHER | LOC: M LAB REF 13:24 | PROVIDERS: ATTEND Internal Medicine Pulmonary Disease | DX: R05.9 Cough, unspecified (principal); J47.9 Bronchiectasis, uncomplicated ==

== ENCOUNTER → 2022-12-13 | Outpatient (CLI) | payer MEDICARE, OTHER | LOC: M RAD 14:20 | PROVIDERS: ATTEND Surgery Vascular Surgery | DX: I65.22 Occlusion and stenosis of left carotid artery (principal) ==

== ENCOUNTER → 2022-12-18 | Outpatient (CLI) | payer MEDICARE, OTHER ==
[~2022-12-18] MED LIST changes: +ALBU2.5V10 INH; +ASPI81CH33 PO; -ATOR1TAB21; +ATOR1TAB21 PO; +BUDE0.5S6 INH; +BUME1TAB3 PO; +EZET10TA21 PO; -LORA-674; +LORA-674 PO; -POTA1TAB23; +POTA1TAB23 PO; +PRAM1TAB7 PO; +PRES10CA2 PO; +RANO500T2 PO; -VALS1TAB66; +VALS1TAB66 PO
== END ==
LOC: M WHC 08:04
PROVIDERS: ATTEND Nurse Practitioner Family
DX: R10.2 Pelvic and perineal pain (principal)

== ENCOUNTER → 2022-12-21 | Outpatient (REF) | payer MEDICARE, OTHER | LOC: M LAB REF 11:02 | PROVIDERS: ATTEND Internal Medicine Pulmonary Disease | DX: J47.9 Bronchiectasis, uncomplicated (principal) ==

== ENCOUNTER → 2023-01-09 | Outpatient (REF) | payer MEDICARE, OTHER ==
[~2023-01-09] MED LIST changes: +LORA-1041 PO; -LORA-674 PO
== END ==
LOC: M LAB REF 16:56
PROVIDERS: ATTEND Internal Medicine Pulmonary Disease
DX: J45.40 Moderate persistent asthma, uncomplicated (principal)

== ENCOUNTER 2023-02-05 20:13 | Emergency (ER) | payer MEDICARE, OTHER ==
[~2023-02-05] VITALS: Ht 149.9 cm; Wt 62.7 kg
[2023-02-05 20:13] VITALS: TEMP 98.1
[2023-02-05] MEDS: COMBIVENT RESPIMAT 100-20MCG INHALER 4GM INH SCH ×3 (23:22→23:27)
[2023-02-05 23:42] LABS: BASO % 0.9 % (0.0-1.0); EOS # 0.2 10^3/uL (0.0-0.5); EOS % 6.8 % (0.0-3.0); HEMATOCRIT 30.5 % (36.0-47.0); HEMOGLOBIN 9.8 g/dl (12.0-15.5); LYMPH # 0.3 10^3/uL (1.5-5.0); LYMPH % 11.4 % (24.0-44.0); MEAN CORPUSCULAR HEMOGLOBIN 30.2 pg (27.0-33.0); MEAN CORPUSCULAR HGB CONC 32.1 g/dl (32.0-36.5); MEAN CORPUSCULAR VOLUME 94.1 fl (80.0-96.0); MONO # 0.4 10^3/uL (0.0-0.8); MONO % 16.4 % (2.0-8.0); NEUTROPHILS # 1.4 10^3/uL (1.5-8.5); NEUTROPHILS % 63.6 % (36.0-66.0); PLATELET COUNT, AUTOMATED 107 10^3/uL (150-450); RED BLOOD COUNT 3.24 10^6/uL (4.00-5.40); WHITE BLOOD COUNT 2.2 10^3/uL (4.0-10.0)
[2023-02-06 00:07] LABS: ALBUMIN 3.9 G/DL (3.2-5.2); BILIRUBIN,DIRECT 0.3 MG/DL (<0.4); CALCIUM LEVEL 8.5 MG/DL (8.3-10.6); CK-MB VALUE MASS 3.1 NG/ML (<3.6); CREATININE FOR GFR 1.35 MG/DL (0.55-1.30); MB/CK RELATIVE INDEX 1.45 (< OR =4); POTASSIUM SERUM 4.1 MMOL/L (3.5-5.1); TOTAL PROTEIN 6.2 G/DL (5.7-8.2)
[2023-02-06 01:30] VITALS: O2SAT 95
== END 2023-02-06 01:41 | disposition home or self-care (01) ==
LOC: M ED 20:13
DX: U07.1 COVID-19 (principal); G20.B2 Parkinson's disease with dyskinesia, with fluctuations; D46.9 Myelodysplastic syndrome, unspecified; Z95.0 Presence of cardiac pacemaker; Z95.810 Presence of automatic (implantable) cardiac defibrillator; Z79.82 Long term (current) use of aspirin; Z79.899 Other long term (current) drug therapy; Z88.2 Allergy status to sulfonamides

== ENCOUNTER → 2023-02-26 | Outpatient (CLI) | payer MEDICARE, OTHER ==
[~2023-02-26] MED LIST changes: +LIDOCAINE 1% MDV 20ML VIAL As Ordered ONE
[2023-02-26 09:04] VITALS: TEMP 97.1
[2023-02-26 09:47] LABS: INR 1.19; PROTHROMBIN TIME 14.8 SECONDS (12.5-14.5)
[2023-02-26 09:48] LABS: PARTIAL THROMBOPLASTIN TIME 30.5 SECONDS (24.8-34.2)
[2023-02-26 10:40] VITALS: BP 148/67; O2SAT 97
[2023-02-26 10:40] LABS: FOLATE 15.21 NG/ML (>5.4)
[2023-02-26 10:46] LABS: BASO % 1.4 % (0.0-1.0); EOS # 0.1 10^3/uL (0.0-0.5); EOS % 6.1 % (0.0-3.0); HEMATOCRIT 28.9 % (36.0-47.0); HEMOGLOBIN 9.4 g/dl (12.0-15.5); LYMPH # 0.7 10^3/uL (1.5-5.0); LYMPH % 31.9 % (24.0-44.0); MEAN CORPUSCULAR HEMOGLOBIN 30.3 pg (27.0-33.0); MEAN CORPUSCULAR HGB CONC 32.5 g/dl (32.0-36.5); MEAN CORPUSCULAR VOLUME 93.2 fl (80.0-96.0); MONO # 0.2 10^3/uL (0.0-0.8); MONO % 10.8 % (2.0-8.0); NEUTROPHILS # 1.1 10^3/uL (1.5-8.5); NEUTROPHILS % 49.3 % (36.0-66.0); PLATELET COUNT, AUTOMATED 144 10^3/uL (150-450); WHITE BLOOD COUNT 2.1 10^3/uL (4.0-10.0)
== END ==
LOC: M IRPRO 08:56
PROVIDERS: ATTEND Internal Medicine Hematology & Oncology
DX: D72.819 Decreased white blood cell count, unspecified (principal)

== ENCOUNTER → 2023-03-12 | Outpatient (REF) | payer MEDICARE, OTHER ==
[~2023-03-12] MED LIST changes: -LIDOCAINE 1% MDV 20ML VIAL As Ordered ONE
== END ==
LOC: M LAB REF 17:10
PROVIDERS: ATTEND Internal Medicine Pulmonary Disease
DX: J47.9 Bronchiectasis, uncomplicated (principal)

== ENCOUNTER → 2023-04-23 | Outpatient (CLI) | payer MEDICARE, OTHER ==
[~2023-04-23] MED LIST changes: +CARB-113 PO; +PRES1CAP PO; +VITA200012 PO
== END ==
LOC: M WHC 06:50
PROVIDERS: ATTEND Family Medicine
DX: Z12.31 Encounter for screening mammogram for malignant neoplasm of breast (principal)

== ENCOUNTER → 2023-04-25 | Outpatient (CLI) | payer MEDICARE, OTHER ==
[~2023-04-25] MED LIST changes: +LIDOCAINE 1% MDV 20ML VIAL As Ordered ONE; +MIDAZOLAM INJ 2MG/2ML VIAL As Ordered ONE; +fentaNYL 100 MCG/2 ML INJECTION As Ordered ONE
[2023-04-25 07:40] VITALS: TEMP 97.1
[2023-04-25 10:10] VITALS: BP 120/58; O2SAT 99
== END ==
LOC: M IRPRO 07:10
PROVIDERS: ATTEND Internal Medicine Hematology & Oncology
DX: D61.818 Other pancytopenia (principal)
CPT/HCPCS: 38222; 77012; 99152; 99153; J2250; J3010

== ENCOUNTER → 2023-09-20 | Outpatient (CLI) | payer MEDICARE, OTHER ==
[~2023-09-20] MED LIST changes: +CARB25TA9; +FORM20VI2; -LIDOCAINE 1% MDV 20ML VIAL As Ordered ONE; -MIDAZOLAM INJ 2MG/2ML VIAL As Ordered ONE; -fentaNYL 100 MCG/2 ML INJECTION As Ordered ONE
== END ==
LOC: M PLAIMG 07:53
PROVIDERS: ATTEND Obstetrics & Gynecology Hospice and Palliative Medicine
DX: M47.892 Other spondylosis, cervical region (principal); M50.00 Cervical disc disorder with myelopathy, unspecified cervical region; R53.1 Weakness; R29.2 Abnormal reflex

== ENCOUNTER → 2023-11-12 | Outpatient (CLI) | payer MEDICARE, OTHER ==
[~2023-11-12] MED LIST changes: +GASTROGRAFIN SOLUTION 30ML ONE; +ISOVUE-370 76% 100ML VIAL ONE
== END ==
LOC: M PLAIMG 10:43
PROVIDERS: ATTEND Internal Medicine Hematology & Oncology
DX: D72.829 Elevated white blood cell count, unspecified (principal)
CPT/HCPCS: Q9963; Q9967

== ENCOUNTER → 2023-11-13 | Outpatient (REF) | payer MEDICARE, OTHER ==
[~2023-11-13] MED LIST changes: -GASTROGRAFIN SOLUTION 30ML ONE; -ISOVUE-370 76% 100ML VIAL ONE
== END ==
LOC: M LAB REF 09:41
PROVIDERS: ATTEND Internal Medicine Pulmonary Disease
DX: J45.40 Moderate persistent asthma, uncomplicated (principal)

== ENCOUNTER → 2023-11-18 | Outpatient (CLI) | payer MEDICARE, OTHER | LOC: M LAB 15:47 | PROVIDERS: ATTEND Psychiatry & Neurology Neurology | DX: R53.1 Weakness (principal) ==

== ENCOUNTER → 2024-01-08 | Outpatient (CLI) | payer MEDICARE, OTHER | LOC: M RAD 16:20 | PROVIDERS: ATTEND Dietitian, Registered | DX: Z91.81 History of falling (principal) ==

== ENCOUNTER → 2024-01-08 | Outpatient (REF) | payer MEDICARE, OTHER | LOC: M LAB REF 17:05 | PROVIDERS: ATTEND Internal Medicine Pulmonary Disease | DX: J47.9 Bronchiectasis, uncomplicated (principal) ==

== ENCOUNTER → 2024-01-27 | Outpatient (CLI) | payer MEDICARE, OTHER | LOC: M PLAIMG 16:18 | PROVIDERS: ATTEND Internal Medicine Pulmonary Disease | DX: J47.9 Bronchiectasis, uncomplicated (principal); I51.7 Cardiomegaly; Z95.0 Presence of cardiac pacemaker ==

== ENCOUNTER → 2024-02-03 | Outpatient (CLI) | payer MEDICARE, OTHER ==
[~2024-02-03] MED LIST changes: -HALO0.052 TOP; +HALO0.056 TOP
== END ==
LOC: M RAD 07:45
PROVIDERS: ATTEND Physician Assistant
DX: I65.23 Occlusion and stenosis of bilateral carotid arteries (principal); J45.40 Moderate persistent asthma, uncomplicated; J47.9 Bronchiectasis, uncomplicated; Z86.16 Personal history of COVID-19; Z79.82 Long term (current) use of aspirin; Z88.2 Allergy status to sulfonamides
CPT/HCPCS: 93880; 94010; G0463

== ENCOUNTER → 2024-02-27 | Outpatient (REF) | payer MEDICARE, OTHER ==
[~2024-02-27] MED LIST changes: +HALO0.052 TOP; -HALO0.056 TOP
== END ==
LOC: M LAB REF 12:30
PROVIDERS: ATTEND Internal Medicine Pulmonary Disease
DX: J45.40 Moderate persistent asthma, uncomplicated (principal)

== ENCOUNTER → 2024-05-05 | Outpatient (CLI) | payer MEDICARE, OTHER ==
[~2024-05-05] MED LIST changes: +BENZ0.5T2; -HALO0.052 TOP; +HALO0.056 TOP
== END ==
LOC: M WHC 12:50
PROVIDERS: ATTEND Family Medicine
DX: Z12.31 Encounter for screening mammogram for malignant neoplasm of breast (principal)

== ENCOUNTER 2024-06-09 12:51 | Emergency (ER) | payer MEDICARE, OTHER ==
[~2024-06-09] VITALS: Ht 149.9 cm; Wt 60.4 kg
[2024-06-09 13:03] VITALS: BP 148/67; TEMP 97.4; O2SAT 100
== END 2024-06-09 14:36 | disposition home or self-care (01) ==
LOC: M ED 12:51
DX: M71.21 Synovial cyst of popliteal space [Baker], right knee (principal); I10 Essential (primary) hypertension; E78.5 Hyperlipidemia, unspecified; J44.9 Chronic obstructive pulmonary disease, unspecified; D64.9 Anemia, unspecified; G20.C Parkinsonism, unspecified; D46.9 Myelodysplastic syndrome, unspecified; Z79.82 Long term (current) use of aspirin; Z79.899 Other long term (current) drug therapy; Z88.1 Allergy status to other antibiotic agents; Z88.2 Allergy status to sulfonamides

== ENCOUNTER → 2024-07-30 | Outpatient (REF) | payer MEDICARE, OTHER | LOC: M LAB REF 12:37 | PROVIDERS: ATTEND Internal Medicine Pulmonary Disease | DX: J45.40 Moderate persistent asthma, uncomplicated (principal) ==

== ENCOUNTER → 2025-02-03 | Outpatient (CLI) | payer MEDICARE, OTHER ==
[~2025-02-03] MED LIST changes: -EZET10TA21 PO; +EZET10TA57 PO; +IRON325T2 PO; +IRON65TA2 PO; +KETO120S5 TOP; -KETO2SHA8 TOP
== END ==
LOC: M WHC 09:49
PROVIDERS: ATTEND Physician Assistant
DX: I65.23 Occlusion and stenosis of bilateral carotid arteries (principal)

== ENCOUNTER → 2025-02-15 | Outpatient (CLI) | payer MEDICARE, OTHER | LOC: M WHC 08:40 | PROVIDERS: ATTEND Internal Medicine | DX: M81.0 Age-related osteoporosis without current pathological fracture (principal) ==

== ENCOUNTER 2025-02-27 09:38 | Inpatient (IN) | payer MEDICARE, OTHER ==
[~2025-02-27] VITALS: Ht 149.9 cm; Wt 59.4 kg
[~2025-02-27 09:38] MED LIST changes: -CARB25TA9; +CARB25TA9 PO; -FORM20VI2; +FORM20VI2 INH
[2025-02-27 10:49] LABS: PLATELET COUNT, AUTOMATED 97 10^3/uL (150-450)
[2025-02-27 11:03] LABS: ATYPICAL LYMPH 1 % (0-5); EOSINOPHILS 10 % (0-3); LYMPHOCYTES 26 % (16-44); MONOCYTES 9 % (0-5); NEUTROPHILS 54 % (28-66); PLATELET ESTIMATE DECREASED (NORMAL)
[2025-02-27 11:07] LABS: C REACTIVE PROTEIN QUANTITATIV 5.48 MG/DL (<1.0)
[2025-02-27 11:08] LABS: CALCIUM LEVEL 7.9 MG/DL (8.3-10.6); CARBON DIOXIDE LEVEL 25.0 MMOL/L (20-31); CHLORIDE LEVEL 105.0 MMOL/L (98-107); CREATININE FOR GFR 0.9 MG/DL (0.55-1.30); GLOMERULAR FILTRATION RATE 63.0 (>32); POTASSIUM SERUM 3.7 MMOL/L (3.5-5.1); SODIUM LEVEL 140.0 MMOL/L (136-145)
[2025-02-27] MEDS: ACETAMINOPHEN 325 MG TAB PO ONE (13:17)
[2025-02-27] MEDS: CARBIDOPA/LEVODOPA 25 MG/100 MG PO ONE (14:05)
[2025-02-27 17:46] VITALS: BP 130/55; TEMP 97.5; O2SAT 98
[2025-02-27] MEDS ORDERED: HOME MED LIST COMPLETE! XX SCH (18:15)
[2025-02-27] MEDS ORDERED: FERR325T3 PO (18:15)
[2025-02-27] MEDS ORDERED: ASPI81TA26 PO (18:15)
[2025-02-27] MEDS: PERCOCET 5MG/325MG TAB PO PRN (19:21)
[2025-02-27 19:43] VITALS: BP 112/42; TEMP 97.5; O2SAT 100
[2025-02-28] MEDS ORDERED: ALEN70TA82 PO (01:48)
[2025-02-28] MEDS ORDERED: PILL CUTTER 1 EACH XX PRN (03:15)
[2025-02-28 05:00] VITALS: BP 133/49; TEMP 97.5; O2SAT 98
[2025-02-28] MEDS: PRAMIPEXOLE 1 MG TAB PO SCH (05:39)
[2025-02-28] MEDS: CARBIDOPA/LEVODOPA 25 MG/100 MG PO SCH (05:42)
[2025-02-28] MEDS: LIDOCAINE 5% PATCH TD SCH (08:14)
[2025-02-28 08:19] LABS: PLATELET COUNT, AUTOMATED 79 10^3/uL (150-450)
[2025-02-28] MEDS: BUMETANIDE 1 MG TAB PO SCH (08:25)
[2025-02-28] MEDS: POTASSIUM CHLORIDE 10MEQ SR TABLET PO SCH (08:25)
[2025-02-28] MEDS: ENOXAPARIN 40 MG/0.4 ML SYRINGE (J1650 PER 10MG) SC SCH (08:31)
[2025-02-28 08:50] LABS: CALCIUM LEVEL 7.2 MG/DL (8.3-10.6); CARBON DIOXIDE LEVEL 25.0 MMOL/L (20-31); CHLORIDE LEVEL 108.0 MMOL/L (98-107); CREATININE FOR GFR 0.79 MG/DL (0.55-1.30); GLOMERULAR FILTRATION RATE 73.7 (>32); MAGNESIUM LEVEL 2.1 MG/DL (1.8-2.4); POTASSIUM SERUM 3.7 MMOL/L (3.5-5.1); SODIUM LEVEL 142.0 MMOL/L (136-145)
[2025-02-28] MEDS: BUDESONIDE 0.5 MG/2 ML INHALATION SUSPENSION INH SCH (11:05)
[2025-02-28] MEDS: FERROUS SULFATE 325 MG TAB PO SCH (11:21)
[2025-02-28] MEDS: PERCOCET 5MG/325MG TAB PO PRN (13:29)
[2025-02-28 14:00] VITALS: BP 71/38; TEMP 98.6; O2SAT 99
[2025-02-28 14:16] VITALS: BP 108/44
[2025-02-28 19:43] VITALS: BP 123/50; TEMP 97.7; O2SAT 99
[2025-02-28] MEDS: ACETAMINOPHEN 325 MG TAB PO PRN (20:00)
[2025-02-28] MEDS: VALSARTAN 80MG TAB PO SCH (21:24)
[2025-02-28] MEDS: ATORVASTATIN 20 MG TAB PO SCH (21:25)
[2025-02-28] MEDS: ASPIRIN 81 MG ENTERIC TABLET PO SCH (21:25)
[2025-02-28] MEDS: EZETIMIBE 10 MG TABLET PO SCH (21:26)
[2025-03-01 04:50] VITALS: BP 122/50; TEMP 98.1; O2SAT 97
[2025-03-01 07:43] LABS: BASO # 0.0 10^3/uL (0.0-0.2); BASO % 0.5 % (0.0-1.0); EOS # 0.3 10^3/uL (0.0-0.5); EOS % 12.2 % (0.0-3.0); LYMPH # 0.7 10^3/uL (1.5-5.0); LYMPH % 35.1 % (24.0-44.0); MONO # 0.4 10^3/uL (0.0-0.8); MONO % 19.0 % (2.0-8.0); NEUTROPHILS % 31.7 % (36.0-66.0)
[2025-03-01 07:57] LABS: C REACTIVE PROTEIN QUANTITATIV 7.6 MG/DL (<1.0)
[2025-03-01 07:58] LABS: CALCIUM LEVEL 7.1 MG/DL (8.3-10.6); CARBON DIOXIDE LEVEL 26.0 MMOL/L (20-31); CHLORIDE LEVEL 109.0 MMOL/L (98-107); CREATININE FOR GFR 0.88 MG/DL (0.55-1.30); GLOMERULAR FILTRATION RATE 64.8 (>32); POTASSIUM SERUM 4.1 MMOL/L (3.5-5.1); SODIUM LEVEL 144.0 MMOL/L (136-145)
[2025-03-01 08:14] LABS: NEUTROPHILS # 0.7 10^3/uL (1.5-8.5); PLATELET COUNT, AUTOMATED 74 10^3/uL (150-450)
[2025-03-01 09:07] VITALS: BP 121/45
[2025-03-01] MEDS ORDERED: OXYC1TAB23 PO (13:35)
== END 2025-03-01 14:30 | disposition home health service (06) | DRG 543 ==
LOC: M ED 09:38 → M ED INP 09:39 → M MS5PR 17:25 → OBSVTOIN 02-28 08:33
PROVIDERS: ADMIT Internal Medicine; ATTEND Internal Medicine
DX: M84.461A Pathological fracture, right tibia, initial encounter for fracture (principal); D61.818 Other pancytopenia; D46.9 Myelodysplastic syndrome, unspecified; I10 Essential (primary) hypertension; G20.A1 Parkinson's disease without dyskinesia, without mention of fluctuations; D50.9 Iron deficiency anemia, unspecified; I25.10 Atherosclerotic heart disease of native coronary artery without angina pectoris; R54 Age-related physical debility; J44.9 Chronic obstructive pulmonary disease, unspecified; M25.461 Effusion, right knee; M84.48XA Pathological fracture, other site, initial encounter for fracture; J45.909 Unspecified asthma, uncomplicated; Z66 Do not resuscitate; Z90.49 Acquired absence of other specified parts of digestive tract; Z79.82 Long term (current) use of aspirin; Z79.899 Other long term (current) drug therapy; Z88.2 Allergy status to sulfonamides; Z88.8 Allergy status to other drugs, medicaments and biological substances; Z88.1 Allergy status to other antibiotic agents; Z95.810 Presence of automatic (implantable) cardiac defibrillator